=== PATIENT | female | born 1955 | race Caucasian/White ===

== ENCOUNTER 2019-12-16 06:06 | Inpatient (IN) | payer OTHER ==
[2019-12-08 12:13] VITALS: BMI 36.0
[2019-12-16] MEDS ORDERED: MIDAZOLAM HCL 2 MG/2 ML SINGLE DOSE VIAL ONE ×2 (07:14→08:12)
[2019-12-16] MEDS ORDERED: PROPOFOL 20 ML ONE ×5 (08:12→10:51)
[2019-12-16] MEDS ORDERED: CEFAZOLIN 2 GM in DEXTROSE 5%-WATER - 100 ML IVPB ONE (08:30)
[2019-12-16] MEDS ORDERED: PHENYLEPHRINE HCL 10 MG/1 ML SINGLE DOSE VIAL ONE (08:44)
[2019-12-16] MEDS ORDERED: VANCOMYCIN 1,000 MG VIAL (RESTRICTED TO ID ONLY) ONE (08:47)
[2019-12-16] MEDS ORDERED: ceFAZolin SODIUM 1 GM VIAL ONE ×2 (08:47→10:14)
[2019-12-16] MEDS ORDERED: TRANEXAMIC ACID 1000 MG/10 ML VIAL ONE (08:47)
[2019-12-16] MEDS ORDERED: SODIUM CHLORIDE 0.9% P/F 10 ML VIAL IJ ONE ×2 (08:47→08:51)
[2019-12-16] MEDS ORDERED: GLYCOPYRROLATE 0.2 MG/1 ML VIAL ONE (09:39)
[2019-12-16] MEDS ORDERED: BENZOIN/ALOE VERA/STORAX/TOLU 58 ML BOTTLE ONE (10:23)
[2019-12-16] MEDS ORDERED: MAG HYDROX/AL HYDROX/SIMETH 30 ML UNIT-DOSE CUP PO PRN (10:51)
[2019-12-16] MEDS ORDERED: ONDANSETRON 4 MG/2 ML VIAL IVPUSH PRN ×2 (10:51→11:34)
[2019-12-16] MEDS ORDERED: MAGNESIUM HYDROX 2400MG/30ML ORAL SUSPENSION 30 ML CUP PO PRN (10:51)
--- NOTE | 2019-12-16 10:56 | PN ---
Progress Note (short form) - Note Progress Note: 64F s/p left ISAAK POD #0. -Pain control. -Ancef 2g IV q6h x 3 doses post-op. -DVT PPx: - Chemical: ASA 81mg PO BID x 6 weeks. - Mechanical: HORTENCIA's, SCD's. -Incentive spirometry. -PT/OT/Rehab, OOB. -WBAT RLE. -Left hip precautions. -Hip abduction pillow: straps loose, not tight. -f/u AM labs. -f/u drain output. -Care per medical hospitalist team. -Discharge planning: f/u 7-10 days after discharge at [facility] [place] office; call for appointment; . -Will follow. Brock Tamayo MD (Orthopaedic Surgery).
--- NOTE | 2019-12-16 10:58 | OP ---
Operative Note - Note: Operative Date: 12/16/19 Pre-Operative Diagnosis: Left hip DJD Operation: Left ISAAK Implants: Mikhail. Cup - Trident II-Tritanium, 54mm. Poly - 28mm, neutral. Stem - Accolade II, #2, 127 deg NSA. Head - 28mm Biolox/Delta Ceramic, standard length Post-Operative Diagnosis: Same as Pre-op Surgeon: Brock Tamayo System Support Administrator: Christiano Tamayo Anesthesiologist/STAMP COLLECTOR: Hyacinth Gr Anesthesia: Spinal Specimens Removed: Left femoral head Estimated Blood Loss (mls): 150 Drains & Tubes with Location: 1x Superficial HemoVac Fluid Volume Replaced (mls): 1,000 (Crystalloid) Operative Report Dictated: Yes
[2019-12-16] MEDS ORDERED: LACTATED RINGERS SOLUTION 1,000 ML IV SCH ×2 (11:00→11:45)
[2019-12-16] MEDS ORDERED: PROMETHAZINE HCL 25 MG/1 ML VIAL IVPUSH PRN (11:34)
[2019-12-16] MEDS ORDERED: ONDANSETRON 4 MG/2 ML VIAL ONE (11:54)
[2019-12-16] MEDS: HYDROmorphone HCL CARPU-JECT 1 MG/1 ML DISP.SYRIN IVPUSH PRN ×2 (12:00→16:09)
[2019-12-16] MEDS ORDERED: HYDROmorphone HCL 0.5 MG/0.5 ML SYRINGE ONE (12:09)
[2019-12-16] MEDS ORDERED: oxyCODONE HCL 5 MG TABLET ONE (12:24)
[2019-12-16] MEDS: oxyCODONE HCL 5 MG TABLET PO PRN ×2 (12:25→19:48)
[2019-12-16] MEDS: HYDROCHLOROTHIAZIDE 12.5 MG CAPSULE (FP) PO SCH (12:58)
[2019-12-16] MEDS: CEFAZOLIN 2 GM/D5W 2 GM/50 ML ML IVPB SCH ×2 (15:21→21:34)
[2019-12-16] MEDS ORDERED: HYDROmorphone HCL CARPU-JECT 1 MG/1 ML DISP.SYRIN IVPB PRN (15:47)
[2019-12-16] MEDS ORDERED: ACETAMINOPHEN 325 MG TABLET (FP) PO PRN (15:50)
--- NOTE | 2019-12-16 19:24 | HP ---
HISTORY OF PRESENT ILLNESS: 64 year-old female with a PMH significant for HTN, HLD, COPD, anxiety, and DJD s/p left total hip arthroplasty with Dr. Brock Tamayo on 12/16/19. PAST MEDICAL HISTORY: Hypertension Hyperlipidemia COPD Anxiety Degenerative Joint Disease PAST SURGICAL HISTORY: Cholecystectomy Laminectomy L5-S1 Tonsillectomy Right total hip 2013 Social History: single, part-time [employer] Smoking: quit 2 years ago Alcohol: 1 glass wine per week Drugs: no Family history: father COPD, DM, CAD; sister lung cancer; mother DM, CHF, PVD Allergies No Known Allergies Allergy (Verified 12/16/19 06:46) HOME MEDICATIONS: Home Medications Medication Instructions Recorded Atorvastatin Ca [Lipitor] 10 mg PO HS 12/08/19 Cholecalciferol (Vitamin D3) 2,000 unit PO DAILY 12/08/19 [Vitamin D3] Lisinopril/Hydrochlorothiazide 1 each PO DAILY 12/08/19 [Lisinopril-Hctz 10-12.5 mg Tab] Multivitamin [One-Daily 1 each PO DAILY 12/08/19 Multi-Vitamin] Tramadol HCl 50 mg PO BID 12/08/19 REVIEW OF SYSTEMS CONSTITUTIONAL: Absent: fever, chills, diaphoresis, generalized weakness, malaise, loss of appetite, weight change HEENT: Absent: rhinorrhea, nasal congestion, throat pain, throat swelling, difficulty swallowing, mouth swelling, ear pain, eye pain, visual changes CARDIOVASCULAR: Absent: chest pain, syncope, palpitations, irregular heart rate, lightheadedness , peripheral edema RESPIRATORY: Absent: cough, shortness of breath, dyspnea with exertion, orthopnea, wheezing, stridor, hemoptysis GASTROINTESTINAL: Absent: abdominal pain, abdominal distension, nausea, vomiting, diarrhea, constipation, melena, hematochezia GENITOURINARY: Absent: dysuria, frequency, urgency, hesitancy, hematuria, flank pain, genital pain MUSCULOSKELETAL: Absent: myalgia, arthralgia, joint swelling, back pain, neck pain SKIN: Absent: rash, itching, pallor HEMATOLOGIC/IMMUNOLOGIC: Absent: easy bleeding, easy bruising, lymphadenopathy, frequent infections ENDOCRINE: Absent: unexplained weight gain, unexplained weight loss, heat intolerance, cold intolerance NEUROLOGIC: Absent: headache, focal weakness or paresthesias, dizziness, unsteady gait, seizure, mental status changes, bladder or bowel incontinence PSYCHIATRIC: Absent: anxiety, depression, suicidal or homicidal ideation, hallucinations. PHYSICAL EXAMINATION Vital Signs - 24 hr 12/16/19 12/16/19 12/16/19 06:50 06:58 11:28 Temperature 98.1 F 97.5 F L Pulse Rate 84 64 Respiratory 26 H 15 Rate Blood Pressure 158/75 124/68 O2 Sat by Pulse 99 99 Oximetry (%) 12/16/19 12/16/19 12/16/19 11:30 11:35 11:40 Temperature Pulse Rate 62 66 74 Respiratory 15 15 14 Rate Blood Pressure 123/66 118/62 125/95 O2 Sat by Pulse 99 99 99 Oximetry (%) 12/16/19 12/16/19 12/16/19 11:55 12:10 12:25 Temperature Pulse Rate 72 74 74 Respiratory 12 12 12 Rate Blood Pressure 127/85 130/72 125/75 O2 Sat by Pulse 99 99 99 Oximetry (%) 12/16/19 12/16/19 12/16/19 12:35 13:00 16:00 Temperature 97.5 F L 97.4 F L 97.4 F L Pulse Rate 74 73 73 Respiratory 12 14 16 Rate Blood Pressure 125/75 97/47 L 135/62 O2 Sat by Pulse 99 100 Oximetry (%) GENERAL: Awake, alert, and fully oriented, in no acute distress. HEAD: Normal with no signs of trauma. EYES: Pupils equal, round and reactive to light, extraocular movements intact, sclera anicteric, conjunctiva clear. LUNGS: Breath sounds equal, clear to auscultation bilaterally. No wheezes, and no crackles. No accessory muscle use. HEART: Regular rate and rhythm, normal S1 and S2 ABDOMEN: Soft, nontender, not distended UPPER EXTREMITIES: 2+ pulses, warm, well-perfused. No cyanosis. No clubbing. No peripheral edema. LEFT LOWER EXTREMITY: Surgical dressing c/d/i, no surrounding erythema, fluctuance; +Hemovac drain NEUROLOGICAL: Cranial nerves II-XII intact. Normal speech.. Pre op BUN 14 Cr 0.7 Hgb 11.8 Intra op Ancef 2g; Vanc 1g EBL 100mL LR 1700mL ASSESSMENT/PLAN 64 year-old female with a PMH significant for HTN, HLD, COPD, anxiety, and DJD s/p left total hip arthroplasty with Dr. Brock Tamayo on 12/16/19. Left total hip arthoplasty --POD #0 --perioperative antibiotics per surgery --pain management per surgery --ASA 81mg BID --protonix --bowel regimen --incentive spirometry --Hemovac drain, monitor output --has voided --tolerating food Hypertension --BP stable --continue lisinopril/HCTZ Hyperlipidemia --continue Lipitor COPD --stable, on no home meds Anxiety --on no meds FEN Fluids: LR@125mL/hr Electrolytes: replete as indicated Nutrition: regular diet DVT prophylaxis: OOB, ambulation, SCDs, TEDs, ASA 81mg BID Physical therapy Dispo: continues to require inpatient care. Full code. Visit type - Emergency Visit Emergency Visit: No - New Patient This patient is new to me today: Yes Date on this admission: 12/17/19 - Critical Care Critical Care patient: No
[2019-12-16] MEDS: ACETAMINOPHEN 325 MG TABLET (FP) PO PRN (20:41)
[2019-12-16] MEDS: ASPIRIN 81 MG CHEWABLE TABLETS PO SCH (21:32)
[2019-12-16] MEDS: SENNOSIDES/DOCUSATE COMBO (SENNA PLUS) TABLET (UD) PO SCH (21:32)
[2019-12-16] MEDS: ATORVASTATIN CA 10 MG TABLET (FP) PO SCH (21:33)
[2019-12-17] MEDS: oxyCODONE HCL 5 MG TABLET PO PRN ×3 (02:51→16:46)
[2019-12-17] MEDS: CEFAZOLIN 2 GM/D5W 2 GM/50 ML ML IVPB SCH (04:36)
[2019-12-17] MEDS: ACETAMINOPHEN 325 MG TABLET (FP) PO PRN ×3 (07:06→21:09)
--- NOTE | 2019-12-17 07:12 | PN ---
Progress Note (short form) - Note Progress Note: ORTHOPAEDIC SURGERY POD #1 s/p Lt ISAAK No acute events per RN notes. Alert. Ambulating with walker and RN assist back from bathroom. Voiding spontaneously. C/o a lot of incisional pain. Denies n/v/f/c, CP, palpitations, SOB or GRULLON. Last Vital Signs Temp Pulse Resp BP Pulse Ox 98.0 F 92 H 18 155/74 100 12/17/19 05:00 12/17/19 05:00 12/17/19 05:00 12/17/19 05:00 12/17/19 05:00 PE Gen: nad LE: RLE unremarkable. Hip abduction pillow in place. left hip dressing c/d/i. Hemovac on self-suction (sanguinous/dark). Dorsi/plantar flexion/extension intact. Foot warm. Palpable DP/PT bilat. SCDs/TEDs bilat. Lower compartments soft/ nt Problem List - Problems (1) Osteoarthritis of left hip Assessment/Plan: 64yo female POD #1 s/p Lt ISAAK. C/o a lot of hip pain. Wants to go to REHAB but her insurance plan will only allow if she has bilateral hip replacements. May need to keep patient at [facility] for 2 more days for pain management. Lives on a [place] level home. Has good support system in place. Pain control -DVT PPx: ASA 81 mg PO BID x 6 weeks & TEDs/SCDs Incentive Spirometer PT/OT/REHAB WBAT LLE Posterior Left hip precautions Monitor/record drain output q shift (most likely will dc drain on rounds in AM) f/u CBC, BMP Cont Hip abduction pillow Cont care per medical hospitalist team DC planning either tomorrow vs. Sat. Above plan discussed with Dr. Christiano Tamayo and agree Code(s): M16.12 - UNILATERAL PRIMARY OSTEOARTHRITIS, LEFT HIP
[2019-12-17 07:30] LABS: HEMATOCRIT 32.3 % (32.4-45.2); HEMOGLOBIN 10.8 GM/dl (10.7-15.3); MCH 29.3 pg (25.7-33.7); MCHC 33.6 g/dl (32.0-36.0); MEAN CELL VOLUME 87.4 fl (80-96); MEAN PLT VOLUME 8.3 fl (7.5-11.1); PLATELET COUNT 292 K/MM3 (134-434); RBC 3.69 M/mm3 (3.60-5.2); RDW 12.4 % (11.6-15.6); WHITE BLOOD COUNT 12.3 K/mm3 (4.0-10.8)
[2019-12-17 07:34] LABS: CALCIUM 8.5 mg/dl (8.5-10); CREATININE 0.8 mg/dl (0.55-1.3)
--- NOTE | 2019-12-17 08:13 | PN ---
Physical Exam: SUBJECTIVE: Patient seen and examined in PT room. Ambulating well. OBJECTIVE: Vital Signs Period Temp Pulse Resp BP Sys/Perry Pulse Ox Last 24 Hr 97.4 F-99.4 F 60-92 12-19 97-155/47-95 95-100 GENERAL: Awake, alert, and fully oriented, in no acute distress. LUNGS: Breath sounds equal, clear to auscultation bilaterally. No wheezes, and no crackles. No accessory muscle use. HEART: Regular rate and rhythm, normal S1 and S2 ABDOMEN: Soft, nontender, not distended UPPER EXTREMITIES: 2+ pulses, warm, well-perfused. No cyanosis. No clubbing. No peripheral edema. LEFT LOWER EXTREMITY: Surgical dressing c/d/i, no surrounding erythema, fluctuance; +Hemovac drain NEUROLOGICAL: Cranial nerves II-XII intact. Normal speech.. Laboratory Results - last 24 hr 12/17/19 12/17/19 06:52 06:52 WBC 12.3 H RBC 3.69 Hgb 10.8 Hct 32.3 L MCV 87.4 MCH 29.3 MCHC 33.6 RDW 12.4 Plt Count 292 MPV 8.3 Sodium 131 L Potassium 3.0 L Chloride 95 L Carbon Dioxide 24 Anion Gap 12 BUN 10.0 Creatinine 0.8 Est GFR (CKD-EPI)AfAm 90.30 Est GFR (CKD-EPI)NonAf 77.91 Random Glucose 140 H Calcium 8.5 Active Medications Generic Name Dose Route Start Last Admin Trade Name Freq PRN Reason Stop Dose Admin Acetaminophen 650 mg 12/16/19 15:50 Tylenol - PO Q4H PRN Pain-PACU ORDER X 2 DOSES ONLY Acetaminophen 650 mg 12/16/19 20:14 12/17/19 07:06 Tylenol - PO 650 mg Q6H PRN Administration PAIN LEVEL 1-5 Al Hydroxide/Mg Hydroxide 30 ml 12/16/19 10:51 Mylanta Oral Suspension - PO Q4H PRN DYSPEPSIA Aspirin 81 mg 12/16/19 22:00 12/16/19 21:32 Asa - PO 81 mg BID IVETTE Administration Atorvastatin Calcium 10 mg 12/16/19 22:00 12/16/19 21:33 Lipitor - PO 10 mg HS IVETTE Administration Hydrochlorothiazide 12.5 mg 12/16/19 12:45 12/16/19 12:58 Hctz - PO Not Given DAILY IVETTE Lisinopril 10 mg 12/17/19 10:00 Prinivil PO DAILY IVETTE Magnesium Hydroxide 30 ml 12/16/19 10:51 Milk Of Magnesia - PO PRN PRN CONSTIPATION Ondansetron HCl 4 mg 12/16/19 10:51 12/16/19 11:38 Zofran Injection IVPUSH 4 mg Q6H PRN Administration NAUSEA Oxycodone HCl 10 mg 12/16/19 11:34 12/17/19 07:07 Roxicodone - PO 12/17/19 11:33 10 mg Q4H PRN Administration PAIN LEVEL 6-10 Oxycodone HCl 5 mg 12/16/19 12:10 Roxicodone - PO Q4H PRN PAIN LEVEL 1-5 Pantoprazole Sodium 40 mg 12/17/19 10:00 Protonix - PO DAILY IVETTE Senna/Docusate Sodium 2 tablet 12/16/19 22:00 12/16/19 21:32 Pericolace - PO 2 tablet BID IVETTE Administration Pre op BUN 14 Cr 0.7 Hgb 11.8 Intra op Ancef 2g; Vanc 1g EBL 100mL LR 1700mL ASSESSMENT/PLAN 64 year-old female with a PMH significant for HTN, HLD, COPD, anxiety, and DJD s/p left total hip arthroplasty with Dr. Brock Tamayo on 12/16/19. Left total hip arthoplasty --POD #1 --perioperative antibiotics complete --pain management per surgery --ASA 81mg BID --protonix --bowel regimen --incentive spirometry --Hemovac drain, monitor output --has voided --tolerating food Hypertension --BP stable --continue lisinopril/HCTZ Hyperlipidemia --continue Lipitor COPD --stable, on no home meds Anxiety --on no meds Hypokalemia --replete FEN Fluids: PO intake adequate Electrolytes: replete as indicated Nutrition: regular diet DVT prophylaxis: OOB, ambulation, SCDs, TEDs, ASA 81mg BID Physical therapy Dispo: continues to require inpatient care. Full code. Visit type - Emergency Visit Emergency Visit: No - New Patient This patient is new to me today: No - Critical Care Critical Care patient: No
[2019-12-17] MEDS: ASPIRIN 81 MG CHEWABLE TABLETS PO SCH ×2 (09:04→21:08)
[2019-12-17] MEDS: SENNOSIDES/DOCUSATE COMBO (SENNA PLUS) TABLET (UD) PO SCH ×2 (09:04→21:08)
[2019-12-17] MEDS: PANTOPRAZOLE 40 MG TABLET PO SCH (09:04)
[2019-12-17] MEDS ORDERED: PATIENT'S OWN MEDICATION (NON-FORMULARY) (Lisinopril/Hydrochlorothiazide [Lisinopril-Hctz PO SCH (10:00)
--- NOTE | 2019-12-17 11:02 | PN ---
Progress Note, Physician Chief Complaint: s/p left hip arthroplasty under spinal anesthesia History of Present Illness: post op day one with peripheral nerve block for pain control - Current Medication List Current Medications: Active Medications Acetaminophen (Tylenol -) 650 mg PO Q6H PRN PRN Reason: PAIN LEVEL 1-5 Last Admin: 12/17/19 07:06 Dose: 650 mg Al Hydroxide/Mg Hydroxide (Mylanta Oral Suspension -) 30 ml PO Q4H PRN PRN Reason: DYSPEPSIA Aspirin (Asa -) 81 mg PO BID [facility] Last Admin: 12/17/19 09:04 Dose: 81 mg Atorvastatin Calcium (Lipitor -) 10 mg PO HS [facility] Last Admin: 12/16/19 21:33 Dose: 10 mg Hydrochlorothiazide (Hctz -) 12.5 mg PO DAILY [facility] Last Admin: 12/16/19 12:58 Dose: Not Given Lisinopril (Prinivil) 10 mg PO DAILY [facility] Magnesium Hydroxide (Milk Of Magnesia -) 30 ml PO PRN PRN PRN Reason: CONSTIPATION Ondansetron HCl (Zofran Injection) 4 mg IVPUSH Q6H PRN PRN Reason: NAUSEA Last Admin: 12/16/19 11:38 Dose: 4 mg Oxycodone HCl (Roxicodone -) 10 mg PO Q4H PRN PRN Reason: PAIN LEVEL 6-10 Stop: 12/17/19 11:33 Last Admin: 12/17/19 07:07 Dose: 10 mg Oxycodone HCl (Roxicodone -) 5 mg PO Q4H PRN PRN Reason: PAIN LEVEL 1-5 Pantoprazole Sodium (Protonix -) 40 mg PO DAILY [facility] Last Admin: 12/17/19 09:04 Dose: 40 mg Senna/Docusate Sodium (Pericolace -) 2 tablet PO BID [facility] Last Admin: 12/17/19 09:04 Dose: 2 tablet - Objective Vital Signs: Vital Signs Temperature 98.4 F 12/17/19 08:35 Pulse Rate 93 H 12/17/19 08:35 Respiratory Rate 18 12/17/19 08:35 Blood Pressure 103/55 L 12/17/19 08:35 O2 Sat by Pulse Oximetry (%) 96 12/17/19 08:36 Constitutional: Yes: Well Nourished Cardiovascular: Yes: WNL Respiratory: Yes: WNL Gastrointestinal: Yes: WNL Labs: CBC, BMP 12/17/19 06:52 12/17/19 06:52 Assessment/Plan no anesthetic complications, pain controlled by oral narcotics, has breakthrough pain, will increase oxycodone dose. Otherwise dept of anesthesia will sign off care at this time
[2019-12-17] MEDS: LISINOPRIL 10 MG TABLET (FP) PO SCH (11:06)
[2019-12-17] MEDS: HYDROCHLOROTHIAZIDE 12.5 MG CAPSULE (FP) PO SCH (11:06)
[2019-12-17] MEDS: oxyCODONE HCL 10 MG SUSTAINED ACTING TABLET PO SCH ×2 (11:19→21:10)
--- NOTE | 2019-12-17 12:16 | OP ---
DATE OF OPERATION: 12/16/2019 SURGEON: Brock Tamayo MD ASSISTANTS: Christiano Tamayo MD and Lewis Mariee PA-C PREOPERATIVE DIAGNOSIS: Osteoarthritis, left hip. POSTOPERATIVE DIAGNOSIS: Osteoarthritis, left hip. OPERATION PERFORMED: Left cementless total hip arthroplasty ([place]). ANESTHESIA: Spinal anesthesia with conscious sedation. OPERATION DETAILS: Patient correctly identified, brought in the operating room. Left lower extremity was prepped and draped in the routine manner with Betadine scrub solution, wiped off with alcohol, DuraPrep applied. A left free drape of the hip was performed. This was a difficult operation. The lady is 4 feet 10 inches and has a significant degree of obesity, particularly of her thighs and buttock regions. This posed a greatly technically difficult operation. With the hip and knee flexed at 45 degrees, an incision was made centered over the greater trochanter. The top part of the incision extended to align drawn vertically from the anterior-superior iliac spine in the supine position, and a distal incision was made just beyond the trochanteric ridge of the femur. We extended this slightly in order to have ease of retraction because of the obesity. The obesity layer was at least 6-8 inches in thickness. The fascia was opened. Charnley retractors were placed around the subfascial plane to expose the hip abductor mechanism. Using an anterior-biased direct lateral approach, that is the 2 cm of fibers were lifted off the femur anteriorly and the incision taken directly then to the capsule of the hip and the entire capsule was thus lifted from superolateral to inferomedial with 2 radial incisions made into the capsule to facilitate it being lifted off the bone bed appropriately. The hip was dislocated by performing abduction, external rotation maneuver. There was no force in this. This was an easy dislocation. Two blunt Hohmanns placed around the femoral neck. The neck cut was made just above the lesser trochanter in accordance with the 2 principles of Charnley. Anterior, posterior, inferior retractors were seated, and 2 Charnley pins placed into the superolateral acetabular bone bed to gain access to the acetabulum itself. The labrum was resected. The capsule was held intact, particularly posteriorly. Using cheese-grater reamers reaming was to size 54 and a size 54 Mikhail cup inserted, this was a Trident II Tritanium cup, and the inner liner was a neutral liner for 28-mm head. The hip was abducted, externally rotated. The hip abductors were gently held retracted off the tip of the greater trochanter with the Hohmann. Entry into the top of the trochanter with the box car loader, and then, the appropriate reaming and broaching with a size 2 Accolade stem, 127-degree implant utilized. This was seated at about 5 degrees of anteversion. The cup was seated at about anything from 5-10 degrees of anteversion so that the entire anteversion of the 2 components together measured approximately from 10-14 degrees. The hip was reduced into position. Leg lengths were equal. Axial alignment was perfect, and there was no dislocatability with the hip flexed at 110 degrees of flexion, internal rotation and abduction were completely safe as well. The size head was a 28-mm ceramic head, placed onto the trunnion. The trunnion was appropriately dried before being placed. The wounds were thoroughly lavaged throughout the operation. CLOSURE: Hip abductor mechanism with No. 1 Vicryl, fascia 1 Vicryl, subcutaneous in 2 layers with No. 1 Vicryl, and skin with 3-0 Monocryl with Steri-Strips. DRAINAGE: A 1/8-inch Hemovac in the subcutaneous tissue plane only. Operation went well. Postoperative x-rays were perfectly seated implant. Patient had no complications with regard to anesthesia. IV antibiotics given were 2 g of Ancef and 1 g of vancomycin given preoperatively, and at the time of seating the femoral components, another 1 g of Ancef was given. MD MARANDA Keenan/[id number]
[2019-12-17] MEDS ORDERED: POTASSIUM CHLORIDE TABS 20 MEQ TABLET.ER (FP) PO ONE ×2 (13:30→19:00)
[2019-12-17] MEDS: ATORVASTATIN CA 10 MG TABLET (FP) PO SCH (21:08)
[2019-12-18] MEDS: ACETAMINOPHEN 325 MG TABLET (FP) PO PRN ×2 (06:13→20:37)
[2019-12-18] MEDS: oxyCODONE HCL 5 MG TABLET PO PRN ×4 (06:14→20:38)
[2019-12-18 07:58] LABS: CALCIUM 8.6 mg/dl (8.5-10); CREATININE 0.8 mg/dl (0.55-1.3); POTASSIUM 3.2 mmol/L (3.5-5.1)
--- NOTE | 2019-12-18 08:04 | PN ---
Progress Note, Physician History of Present Illness: Patient seen and examined at bedside. Endorses feeling well. Still has some pain as left hip surgery site. Low grade 100.3 temp. mildly tachycardic HR 102. Denies nausea vomiting fever chills chest pain urinary symptoms GI symptoms and SOB. Eating and drinking well. - Current Medication List Current Medications: Active Medications Acetaminophen (Tylenol -) 650 mg PO Q6H PRN PRN Reason: PAIN LEVEL 1-5 Last Admin: 12/18/19 06:13 Dose: 650 mg Al Hydroxide/Mg Hydroxide (Mylanta Oral Suspension -) 30 ml PO Q4H PRN PRN Reason: DYSPEPSIA Aspirin (Asa -) 81 mg PO BID [facility] Last Admin: 12/17/19 21:08 Dose: 81 mg Atorvastatin Calcium (Lipitor -) 10 mg PO HS [facility] Last Admin: 12/17/19 21:08 Dose: 10 mg Hydrochlorothiazide (Hctz -) 12.5 mg PO DAILY [facility] Last Admin: 12/17/19 11:06 Dose: 12.5 mg Lisinopril (Prinivil) 10 mg PO DAILY [facility] Last Admin: 12/17/19 11:06 Dose: 10 mg Magnesium Hydroxide (Milk Of Magnesia -) 30 ml PO PRN PRN PRN Reason: CONSTIPATION Ondansetron HCl (Zofran Injection) 4 mg IVPUSH Q6H PRN PRN Reason: NAUSEA Last Admin: 12/16/19 11:38 Dose: 4 mg Oxycodone HCl (Roxicodone -) 5 mg PO Q4H PRN PRN Reason: PAIN LEVEL 1-5 Last Admin: 12/18/19 06:14 Dose: 5 mg Oxycodone HCl (Oxycontin -) 10 mg PO BID [facility] Last Admin: 12/17/19 21:10 Dose: 10 mg Pantoprazole Sodium (Protonix -) 40 mg PO DAILY [facility] Last Admin: 12/17/19 09:04 Dose: 40 mg Senna/Docusate Sodium (Pericolace -) 2 tablet PO BID [facility] Last Admin: 12/17/19 21:08 Dose: 2 tablet - Objective Vital Signs: Vital Signs Temperature 100.3 F H 12/18/19 06:15 Pulse Rate 102 H 12/18/19 06:15 Respiratory Rate 18 12/18/19 06:15 Blood Pressure 130/62 12/18/19 06:15 O2 Sat by Pulse Oximetry (%) 96 12/18/19 06:15 Constitutional: Yes: Well Nourished, No Distress, Calm Eyes: Yes: EOM Intact HENT: Yes: Atraumatic Neck: Yes: Supple Cardiovascular: Yes: Regular Rate and Rhythm, Murmur (3/6 systolic at LUSB) Respiratory: Yes: WNL, Regular, CTA Bilaterally Gastrointestinal: Yes: Normal Bowel Sounds, Soft Neurological: Yes: Alert, Oriented ...Motor Strength: LLE (limited by pain. sensation intact. Movmement also intact but limited by pain.) Impression/Plan Impression/Plan: 64 year-old female with a PMH significant for HTN, HLD, COPD, anxiety, and DJD POD#2 s/p left hip total arthroplasty. dejenerative joint disease POD#1 s/p Left total hip arthoplasty Oxycodone increase by anesthesia continue Aspirin 81mg incentive spirometry OOB as tolerated ambulate PT Drain removed by surgical PA-Discussed with her face to face low grade temp of 100.3 with mild tachycardia: will monitor for now culture if temp 101.5 or greater Hypertension continue HCTZ continue lisinopril BP controlled Hyperlipidemia continue statin COPD no issues. lungs clear Hypokalemia potassium 3.2 will give 40meq of potassium chloride BID for 2 doses PPx: PPI for GI PPx DVT prophylaxis: OOB, ambulation, SCDs, TEDs, ASA 81mg BID Physical therapy to avoid deconditioning Monitor patient for today. Low threshold to culture should she spike 101.5 or greater Visit type - Emergency Visit Emergency Visit: No - New Patient This patient is new to me today: Yes Date on this admission: 12/18/19 - Critical Care Critical Care patient: No
[2019-12-18 08:08] LABS: HEMATOCRIT 30.2 % (32.4-45.2); HEMOGLOBIN 10.2 GM/dl (10.7-15.3); MCH 29.7 pg (25.7-33.7); MCHC 33.8 g/dl (32.0-36.0); MEAN CELL VOLUME 87.8 fl (80-96); MEAN PLT VOLUME 8.6 fl (7.5-11.1); PLATELET COUNT 269 K/MM3 (134-434); RBC 3.44 M/mm3 (3.60-5.2); RDW 12.4 % (11.6-15.6); WHITE BLOOD COUNT 11.9 K/mm3 (4.0-10.8)
--- NOTE | 2019-12-18 08:12 | PN ---
Progress Note (short form) - Note Progress Note: Surgery POD #2 Left ISAAK patient seen and examined at bedside with no complaints. The patient has been OOB with walker and assist and voiding without limitation. She is tolerating her diet and denies any CP, SOB, N/V fever or chills. Her pain is controlled. Vital Signs Temp 100.3 F H 12/18/19 06:15 Pulse 102 H 12/18/19 06:15 Resp 18 12/18/19 06:15 BP 130/62 12/18/19 06:15 Pulse Ox 96 12/18/19 06:15 Intake & Output 12/17/19 12/17/19 12/18/19 11:59 23:59 11:59 Intake Total 1475 850 Output Total 830 515 Balance 645 335 Intake: IV 1375 Lactated Ringers Solution 1375 1,000 ml @ 125 mls/hr IV ASDIR IVETTE Rx#: [id number] IVPB 100 Oral 850 Output: Drainage 30 15 Left Hip 30 15 Urine 800 500 Void 800 500 Other: Voiding Method Toilet Toilet Toilet # Unmeasured Voids Void 2 Bowel Movement No CBC, BMP 12/18/19 07:07 PE: A&Ox3, NAD Unlabored resp on RA Left Hip: dressing C/D/I with surrounding tissue intact and no evidence of tracking erythema, collection or d/c, drain removed with tip fully intact and drain ostomy dry with no d/c. Thigh soft, supple with mild TTP. B/L LE compartments soft, supple and nontender with +2 DP and TP pulses. 5/5 strength on dorsi/plantar flexion. A/P POD #2 left ISAAK doing well. -Pain control. -DVT PPx: - Chemical: ASA 81mg PO BID x 6 weeks. -Incentive spirometry. -PT/OT/Rehab, OOB. -WBAT LLE -Left hip precautions. -Hip abduction pillow: straps loose, not tight. -Care per medical hospitalist team. -Discharge planning for home tomorrow: f/u 7-10 days after discharge at [facility] office; call for appointment; . -
[2019-12-18] MEDS: oxyCODONE HCL 10 MG SUSTAINED ACTING TABLET PO SCH ×2 (10:01→21:40)
[2019-12-18] MEDS: ASPIRIN 81 MG CHEWABLE TABLETS PO SCH ×2 (10:03→21:36)
[2019-12-18] MEDS: HYDROCHLOROTHIAZIDE 12.5 MG CAPSULE (FP) PO SCH (10:04)
[2019-12-18] MEDS: POTASSIUM CHLORIDE TABS 20 MEQ TABLET.ER (FP) PO SCH ×2 (10:04→21:36)
[2019-12-18] MEDS: SENNOSIDES/DOCUSATE COMBO (SENNA PLUS) TABLET (UD) PO SCH ×2 (10:05→21:36)
[2019-12-18] MEDS: PANTOPRAZOLE 40 MG TABLET PO SCH (10:05)
[2019-12-18] MEDS: LISINOPRIL 10 MG TABLET (FP) PO SCH (10:05)
--- NOTE | 2019-12-18 18:20 | PATH ---
Surgical Pathology Report Patient Name: MARCO REINA Med. Rec. #: [id number] /Age/Gender: 1955 (Age: 64) / F Account: [id number] Location: [facility] MED-SURG Taken: 12/16/2019 Received: 12/16/2019 Reported: 12/18/2019 Physicians: Brock Tamayo M.D. Specimen(s) Received LEFT FEMORAL HEAD Clinical History Osteoarthritis left hip Final Diagnosis LEFT FEMORAL HEAD, RESECTION: DEGENERATIVE JOINT DISEASE, LEFT HIP. Electronically Signed Pati Mcintosh M.D. Gross Description Received in formalin, labeled "left femoral head," is a 4.3 x 4.3 x 4.0 cm. femoral head with a 0.7 cm in length portion of femoral neck attached. The margin of resection is smooth. There is a 3.6 cm greatest dimension area of eburnation present. The remaining articular surface is wilson-yellow and diffusely granular. The underlying trabecular bone is yellow and hard. A territory sales representative section is submitted in one cassette, following decalcification. /12/17/2019 [facility]12/17/2019
[2019-12-18] MEDS: ATORVASTATIN CA 10 MG TABLET (FP) PO SCH (21:36)
[2019-12-19] MEDS: oxyCODONE HCL 5 MG TABLET PO PRN ×2 (06:54→13:50)
[2019-12-19] MEDS: ACETAMINOPHEN 325 MG TABLET (FP) PO PRN (06:54)
--- NOTE | 2019-12-19 08:18 | DS ---
Physical Exam: SUBJECTIVE: Patient seen and examined at bedside. Sitting in chair eating breakfast. Feels well. Denies nausea vomiting fever chills chest pain SOB diarrhea urinary symptoms dizziness lightheadedness or any other symptoms at this time except some soreness at the surgical site. Drain removed last night by surgical team OBJECTIVE: Vital Signs Period Temp Pulse Resp BP Sys/Perry Pulse Ox Last 24 Hr 97.8 F-99.6 F 68-95 16-19 101-119/50-67 98-100 PHYSICAL EXAM Constitutional: Yes: Well Nourished, No Distress, Calm Eyes: Yes: EOM Intact HENT: Yes: Atraumatic Neck: Yes: Supple Cardiovascular: Yes: Regular Rate and Rhythm, Murmur (3/6 systolic at LUSB) Respiratory: Yes: WNL, Regular, CTA Bilaterally Gastrointestinal: Yes: Normal Bowel Sounds, Soft Neurological: Yes: Alert, Oriented ...Motor Strength: LLE (limited by pain. sensation intact. Movmement also intact but limited by pain.) LABS Laboratory Results - last 24 hr 12/18/19 07:07 WBC 11.9 H RBC 3.44 L Hgb 10.2 L Hct 30.2 L MCV 87.8 MCH 29.7 MCHC 33.8 RDW 12.4 Plt Count 269 MPV 8.6 HOSPITAL COURSE: Date of Admission:12/16/19 Date of Discharge: 12/19/19 Minutes to complete discharge: 36 Discharge Summary Problems reviewed: Yes Reason For Visit: PRIMARY OSTEOARTHRITIS LEFT HIP Current Active Problems Osteoarthritis of left hip (Acute) Hospital Course: 64F with HTN and DJD presented to the hospital for left total hip athroplasty. She had a drain which was removed yesterday after output slowed down. She got physical therapy twice a day and her pain and mobility has significantly improved. She will need follow up with Dr. Tamayo within 1 week. She was hypokalemic during hospital stay and repleted. She is now POD#3 and stable for discharge. She will need aspirin 81mg po BID for 6 weeks for DVT prophylaxis per Dr. Tamayo. Condition: Good - Instructions Diet, Activity, Other Instructions: Dr. Tamayo Discharge Instructions for Hip Replacement Post Operative Instructions Physical activity Physical Therapist will come to your home for the first 5 days. You will be set up with outpatient PT at your first post-operative visit. Use assistive devices for ambulation at all times. Weight bearing as tolerated on your surgical side. Wound care Leave your surgical dressing in place. Do not change the dressing until seen by your surgeon in the office. No baths or showers. Do not submerge your incision. Do not apply any ointments or lotions to your incision. Please call the office if your dressing is soiled/dirty or is falling off. Apply Graduated Compression Stockings (TEDS) to both lower extremities-remove daily for hygiene ONLY. Diet There are no dietary restrictions. Eat healthy, high-fiber foods. Drink 6 to 8 glasses of liquid each day. This will assist in keeping your bowels are regular. Pain management Any pain prescription medication ordered should be taken as prescribed for moderate to severe pain. Do not take additional Tylenol while taking Percocet. Posterior Hip Precautions: Do not cross the leg you had surgery on over your other leg. (Do not cross your legs.) Use an elevated toilet seat. Do not sit on low chairs or beds. Use purple pillow (abductor) when lying in bed. Take Aspirin 81 mg two times a day for a total of 6 weeks to prevent blood clots. Call Dr. Tamayo for any of the following: Severe pain not relieved by medication Fever of 101 or higher Excessive bleeding or drainage on dressing Inability to urinate If you experience chest pain or shortness of breath, please seek emergency care immediately. Please call the office at to confirm your post-op appointment for the week following surgery. Please also follow up with your primary care doctor for continued preventative management. Referrals: Christiano Tamayo MD [Staff Physician] - 1 Week (call to make appointment for this coming week) Disposition: HOME - Home Medications Comprehensive Discharge Medication List: Ambulatory Orders Atorvastatin Ca [Lipitor] 10 mg PO HS 12/08/19 Cholecalciferol (Vitamin D3) [Vitamin D3] 2,000 unit PO DAILY 12/08/19 Lisinopril/Hydrochlorothiazide [Lisinopril-Hctz 10-12.5 mg Tab] 1 each PO DAILY 12/08/19 Multivitamin [One-Daily Multi-Vitamin] 1 each PO DAILY 12/08/19 Acetaminophen [Tylenol .Regular Strength -] 650 mg PO Q6H PRN tablet 12/19/19 Aspirin [ASA -] 81 mg PO BID #60 tab.chew 12/19/19 Sennosides/Docusate Sodium [Pericolace -] 2 tablet PO BID #120 tablet 12/19/19 oxyCODONE HCL [Roxicodone -] 5 mg PO Q6H PRN #20 tablet MDD 4 tabs 12/19/19 oxyCODONE SR [Oxycontin] 10 mg PO BID 7 Days #14 tab.er.12h MDD 2 tabs 12/19/19 Prescription Drug Monitoring Program (I-STOP) results: I-STOP reviewed and no issues identified (Reference number [id number]) This patient is new to me today: No Emergency Visit: No Critical Care patient: No - Discharge Referral Referred to [facility] No Quality Measures-Exclusions - VTE Prophylaxis Contraindications to VTE Prophylaxis: Surgery lower extremity (will go on aspirin 81mg twice a day for 6 weeks)
[2019-12-19 08:50] LABS: BASO % 0.2 % (0-2.0); EOS % 2.4 % (0-4.5); HEMATOCRIT 27.6 % (32.4-45.2); HEMOGLOBIN 9.1 GM/dl (10.7-15.3); LYMPH % 8.7 % (8-40); MCH 29.3 pg (25.7-33.7); MCHC 32.8 g/dl (32.0-36.0); MEAN CELL VOLUME 89.2 fl (80-96); MEAN PLT VOLUME 8.2 fl (7.5-11.1); MONO % 4.8 % (3.8-10.2); NEUT % 83.9 % (42.8-82.8); PLATELET COUNT 254 K/MM3 (134-434); RDW 12.9 % (11.6-15.6); WHITE BLOOD COUNT 10.1 K/mm3 (4.0-10.8)
[2019-12-19 08:57] LABS: CALCIUM 8.1 mg/dl (8.5-10); CREATININE 0.8 mg/dl (0.55-1.3); MAGNESIUM 1.6 mg/dL (1.8-2.4); POTASSIUM 3.6 mmol/L (3.5-5.1)
--- NOTE | 2019-12-19 09:57 | PN ---
Progress Note (short form) - Note Progress Note: 64F s/p left ISAAK POD #3. -Pain control. -Ancef 2g IV q6h x 3 doses post-op. -DVT PPx: - Chemical: ASA 81mg PO BID x 6 weeks. - Mechanical: HORTENCIA's, SCD's. -Incentive spirometry. -PT/OT/Rehab, OOB. -WBAT RLE. -Left hip precautions. -Hip abduction pillow: straps loose, not tight. -f/u AM labs. -f/u drain output. -Care per medical hospitalist team. -Discharge home today: f/u 7-10 days after discharge at [facility] [place] office; call for appointment; . -Will follow. Brock Tamayo MD (Orthopaedic Surgery).
[2019-12-19] MEDS: HYDROCHLOROTHIAZIDE 12.5 MG CAPSULE (FP) PO SCH (10:04)
[2019-12-19] MEDS: ASPIRIN 81 MG CHEWABLE TABLETS PO SCH (10:04)
[2019-12-19] MEDS: SENNOSIDES/DOCUSATE COMBO (SENNA PLUS) TABLET (UD) PO SCH (10:05)
[2019-12-19] MEDS: oxyCODONE HCL 10 MG SUSTAINED ACTING TABLET PO SCH (10:05)
[2019-12-19] MEDS: LISINOPRIL 10 MG TABLET (FP) PO SCH (10:05)
[2019-12-19] MEDS: PANTOPRAZOLE 40 MG TABLET PO SCH (10:05)
[2019-12-19 10:28] VITALS: BP 112/67; PULSE 90; TEMP 98.4
[2019-12-19] MEDS ORDERED: MAGNESIUM OXIDE 400 MG TABLET (FP) PO ONE (10:39)
[2019-12-19] MEDS ORDERED: POTASSIUM CHLORIDE TABS 20 MEQ TABLET.ER (FP) PO ONE (10:39)
== END 2019-12-19 14:35 | disposition home or self-care (01) | DRG 470 ==
LOC: FM/S 06:06
PROVIDERS: ADMIT Orthopaedic Surgery Orthopaedic Surgery of the Spine; ATTEND Internal Medicine
PROC: 0SRB0JA Replacement of Left Hip Joint with Synthetic Substitute, Uncemented, Open Approach (ICD-10-PCS; principal; 2019-12-16 09:23)
DX: M16.12 Unilateral primary osteoarthritis, left hip (principal); E87.6 Hypokalemia; F41.9 Anxiety disorder, unspecified; E78.5 Hyperlipidemia, unspecified; I10 Essential (primary) hypertension
CPT/HCPCS: 36415; 73502-TC-LT-FY; 80048; 83735; 85025; 85027; 88304-TC; 88311-TC; 94760; 97116-GP; 97163-GP